=== PATIENT | male | born 1955 | race Caucasian/White ===

== ENCOUNTER 2016-11-01 14:55 | Emergency (ER) | payer BC ==
[2016-11-01 16:14] VITALS: BP 151/82
--- NOTE | 2016-11-01 17:06 | EDM.PDOC ---
ED HPI Trauma - General Chief Complaint: Upper Extremity Injury/Pain Stated Complaint: LEFT ARM PAIN Time Seen by Provider: 11/01/16 15:33 Source: Reports: Patient History Limitations: Reports: No limitations - History of Present Illness INITIAL COMMENTS - FREE TEXT/NARRATIVE: History of present illness: [This 61-year-old male is presenting with left shoulder pain with some radiation down his arm that started yesterday evening. He slept through the night didn't have any trouble than late morning he started having some aching in that shoulder once again. He also noted some numbness and tingling of his first second and third fingers of that hand. He did not have any associated nausea vomiting diaphoresis or shortness of breath or lightheadedness. He did not have any chest pain or pressure. He had a negative angiogram about 4 years ago. At the time that I am seeing him essentially is pain-free] Review of systems: As per history of present illness and below otherwise all systems reviewed and negative. Past medical history: As per history of present illness and as reviewed below otherwise noncontributory. Surgical history: As per history of present illness and as reviewed below otherwise noncontributory. Social history: No reported history of drug or alcohol abuse. Family history: As per history of present illness and as reviewed below otherwise noncontributory. Physical exam: HEENT: Atraumatic, normocephalic, pupils reactive, negative for conjunctival pallor or scleral icterus, mucous membranes moist, throat clear, neck supple, nontender, trachea midline. Lungs: Clear to auscultation, breath sounds equal bilaterally, chest nontender. Heart: S1S2, regular, negative for clicks, rubs, or JVD. Abdomen: Soft, nondistended, nontender. Negative for masses or hepatosplenomegaly. Negative for costovertebral tenderness. Pelvis: Stable nontender. Genitourinary: Deferred. Rectal: Deferred. Extremities: Atraumatic, negative for cords or calf pain. Neurovascular unremarkable. Neuro: Awake, alert, oriented. Cranial nerves II through XII unremarkable. Cerebellum unremarkable. Motor and sensory unremarkable throughout. Exam nonfocal. Diagnostics: [EKG and troponin are unremarkable other than the EKG did show occasional PVCs] Therapeutics: [] Impression: [Left shoulder and arm pain] Plan: [He is not established himself with a physician I'm recommending that he do that and began having yearly physicals. He is intelligent and very familiar with the typical symptoms of angina or a heart attack and will return if these occur. One possibility is this is a manifestation of carpal tunnel but he is right-handed and this is his left arm. He could have some sort of cervical radiculopathy as well.] Definitive disposition and diagnosis as appropriate pending reevaluation and review of above. Allergies/ADRs: Allergies Penicillins Allergy (Verified 11/01/16 15:08) Other bee stings Allergy (Uncoded 11/01/16 15:08) Anaphylactic Shock shellfish Allergy (Uncoded 11/01/16 15:08) Swollen Tongue Home Medications: Ambulatory Orders Omeprazole [priLOSEC OTC] 20 mg PO DAILY 08/26/14 [Confirmed 11/01/16] Past Medical History Gastrointestinal History: Reports: GERD - Past Surgical History GI Surgical History: Reports: Hernia repair/other Social & Family History - Tobacco Use Smoking Status *Q: Never Smoker Years of Tobacco use: 1 Second Hand Smoke Exposure: No - Alcohol Use Days Per Week of Alcohol Use: 1 Number of Drinks Per Day: 3 Total Drinks Per Week: 3 - Recreational Drug Use Recreational Drug Use: No Review of Systems - Review of Systems Review Of Systems: ROS reveals no pertinent complaints other than HPI. Trauma Exam - Physical Exam Exam: See Below Course - Vital Signs Last Recorded V/S: Last Vital Signs Temp 36.7 C 11/01/16 15:08 Pulse 91 11/01/16 15:08 Resp 16 11/01/16 16:13 BP 151/82 H 11/01/16 16:13 Pulse Ox 99 11/01/16 16:13 - Orders/Labs/Meds Orders: Active Orders 24 hr Category Date Time Status EKG Documentation Completion [RC] ASDIRECTED Care 11/01/16 16:03 Active EKG 12 Lead [EK] Stat Ther 11/01/16 16:03 Ordered Labs: Laboratory Tests 11/01/16 Range/Units 15:49 Troponin I < 0.017 (0.000-0.056) ng/mL Departure - Departure Time of Disposition: 17:04 Disposition: Home, Self-Care 01 Condition: good Clinical Impression: Radiculopathy affecting upper extremity Left shoulder pain Qualifiers: Chronicity: acute Qualified Code(s): M25.512 - Pain in left shoulder Forms: ED Department Discharge Additional Instructions: Please establish herself with a physician and began having yearly physicals. If you do experience the more typical symptoms of heart pain and of course return to the emergency room. It is likely her current pain is related to a pinched nerve somewhere in your arm or neck and a doctor can help sort this out or a neurologist if your problem persists. It is very unlikely that this is from her heart but we cannot be 100% certain so again be cautious in return to the ER if you have worsening of this pain or symptoms more consistent with heart pain - My Orders Last 24 Hours: My Active Orders 11/01/16 16:03 EKG Documentation Completion [RC] ASDIRECTED EKG 12 Lead [EK] Stat - Assessment/Plan Last 24 Hours: My Active Orders 11/01/16 16:03 EKG Documentation Completion [RC] ASDIRECTED EKG 12 Lead [EK] Stat
== END 2016-11-01 17:12 | disposition home or self-care (01) ==
LOC: JP.ED 14:55
DX: M54.10 Radiculopathy, site unspecified (principal); M25.512 Pain in left shoulder; K21.9 Gastro-esophageal reflux disease without esophagitis; Z79.899 Other long term (current) drug therapy; Z98.890 Other specified postprocedural states; Z88.0 Allergy status to penicillin; Z91.013 Allergy to seafood; Z91.030 Bee allergy status
CPT/HCPCS: 36415; 84484; 93005; 99284-25